=== PATIENT | female | born 1955 | race Caucasian/White ===

== ENCOUNTER 2021-08-10 15:49 | Inpatient (IN) ==
[2021-08-10] MEDS ORDERED: Acetaminophen 325 MG TABLET PO PRN (21:47)
[2021-08-10] MEDS ORDERED: Ondansetron 4 MG/2 ML VIAL IVP PRN (21:47)
[2021-08-10] MEDS ORDERED: Melatonin 3 MG TABLET PO PRN (21:47)
[2021-08-10] MEDS ORDERED: Naloxone 0.4 MG/ML INJ IVP PRN (21:47)
[2021-08-10] MEDS ORDERED: Perflutren Lipid Microsphere 1.3 ML in 0.9 % Sodium Chloride 8.7 ML IVP PRN (22:05)
[2021-08-11 02:17] LABS: Adenovirus Not Detected (Not Detect); Bordetella Pertussis Not Detected (Not Detect); Chlamydophila pneumoniae Not Detected (Not Detect); Coronavirus 229E Not Detected (Not Detect); Coronavirus HKU1 Not Detected (Not Detect); Coronavirus NL63 Not Detected (Not Detect); Coronavirus OC43 Not Detected (Not Detect); Human Metapneumovirus Not Detected (Not Detect); Human Rhinovirus/Enterovirus Not Detected (Not Detect); Influenza A Subtype 2009 H1 Not Detected (Not Detect); Influenza B Not Detected (Not Detect); Mycoplasma pneumoniae Not Detected (Not Detect); Parainfluenza Virus 1 Not Detected (Not Detect); Parainfluenza Virus 2 Not Detected (Not Detect); Parainfluenza Virus 3 Not Detected (Not Detect); Parainfluenza Virus 4 Not Detected (Not Detect); Respiratory Syncytial Virus Not Detected (Not Detect); SARS-CoV-2 Not Detected (Not Detect)
[2021-08-11 04:11] LABS: Basophils % 0.3 %; Hematocrit 40.2 % (35.3-44.9); Hemoglobin 12.8 g/dL (11.5-15.4); Lymphocytes % 7.6 %; Mean Corpuscular HGB Conc 31.8 g/dL (31.6-35.5); Mean Corpuscular Hemoglobin 31.7 pg (28.0-33.3); Mean Corpuscular Volume 99.5 fL (83.0-100.0); Mean Platelet Volume 9.8 fL (9.4-12.4); Monocytes # 0.8 K/mcL (0.0-1.3); Monocytes % 5.8 %; Neutrophils # 11.5 K/mcL (1.6-8.9); Nucleated Red Blood Cells 0.1 /100 WBC (0); Platelet Count 202 K/mcL (140-400); Red Blood Count 4.04 M/mcL (3.82-4.97); Red Cell Distribution Width 17.3 % (11.5-14.5); Segmented Neutrophils % 85.3 %; White Blood Count 13.5 K/mcL (4.3-11.1)
[2021-08-11 04:17] LABS: BUN/Creatinine Ratio 24 (6-26); Blood Urea Nitrogen 12 mg/dL (8-23); Calcium 9.1 mg/dL (8.6-10.3); Carbon Dioxide 32 mEq/L (23-29); Chloride 96 mEq/L (98-107); Glucose 143 mg/dL (70-105); Magnesium 1.9 mg/dL (1.6-2.6); Osmolality,Calculated 282 (280-300); Potassium 3.4 mEq/L (3.5-5.1); Sodium 135 mEq/L (136-145); eGFR For African Americans > 60 (> 60); eGFR For Non-African Americans > 60 (> 60)
[2021-08-11] MEDS ORDERED: *HR* Enoxaparin 40 MG/0.4 ML SYRINGE SQ SCH (06:00)
[2021-08-11 07:27] VITALS: BP 107/71; PULSE 100; TEMP 98.2; O2SAT 94
[2021-08-11] MEDS ORDERED: Magic Mouthwash 10 ML UD Cup PO PRN (08:11)
[2021-08-11 08:40] LABS: Troponin I < 0.03 ng/mL (< 0.04)
[2021-08-11] MEDS ORDERED: levoFLOXacin 750 MG/150 ML 750 MG/150 ML BAG IVPB SCH (09:00)
[2021-08-11] MEDS ORDERED: Metoprolol XL (24 HR) Succ 50 MG TAB.ER.24H PO SCH (09:00)
[2021-08-11] MEDS ORDERED: amLODIPine 5 MG TABLET PO SCH (09:00)
[2021-08-11 10:31] LABS: Folate 12.2 ng/mL (3.0-16.0)
[2021-08-11 10:53] LABS: Vitamin B12 > 1500 pg/mL (250-1100)
[2021-08-11] MEDS ORDERED: OLANZapine 5 MG TAB.RAPDIS PO SCH (21:00)
== END 2021-08-11 13:31 | disposition home or self-care (01) | DRG 314 ==
LOC: 2ANU → OBSVTOIN 21:14
PROVIDERS: ADMIT General Practice; ATTEND General Practice

== ENCOUNTER 2021-10-08 19:10 | Inpatient (IN) ==
[2021-10-08 20:18] LABS: Basophils # 0.1 K/mcL (0.0-0.2); Basophils % 0.4 %; Eosinophils % 0.3 %; Hematocrit 38.2 % (35.3-44.9); Hemoglobin 11.8 g/dL (11.5-15.4); Immature Granulocytes % 0.6 % (0-4); Lymphocytes % 8.2 %; Mean Corpuscular HGB Conc 30.9 g/dL (31.6-35.5); Mean Corpuscular Hemoglobin 31.5 pg (28.0-33.3); Mean Corpuscular Volume 101.9 fL (83.0-100.0); Mean Platelet Volume 9.7 fL (9.4-12.4); Monocytes # 1.2 K/mcL (0.0-1.3); Neutrophils # 9.6 K/mcL (1.6-8.9); Platelet Count 298 K/mcL (140-400); Red Blood Count 3.75 M/mcL (3.82-4.97); Red Cell Distribution Width 17.1 % (11.5-14.5); Segmented Neutrophils % 80.5 %; White Blood Count 11.9 K/mcL (4.3-11.1)
[2021-10-08 20:39] LABS: Alanine Aminotransferase 13 Units/L (7-52); Albumin 3.3 g/dL (3.5-5.7); Albumin/Globulin Ratio 1.2 (1.1-2.2); Alkaline Phosphatase 108 Units/L (34-104); Aspartate Amino Transferase 11 Units/L (13-39); BUN/Creatinine Ratio 15 (6-26); Bilirubin,Total 0.3 mg/dL (0.3-1.0); Blood Urea Nitrogen 6 mg/dL (8-23); Calcium 9.1 mg/dL (8.6-10.3); Carbon Dioxide 35 mEq/L (23-29); Chloride 94 mEq/L (98-107); Globulin 2.7 g/dL (2.4-3.5); Glucose 225 mg/dL (70-105); Osmolality,Calculated 285 (280-300); Potassium 3.1 mEq/L (3.5-5.1); Sodium 135 mEq/L (136-145); eGFR For African Americans > 60 (> 60); eGFR For Non-African Americans > 60 (> 60)
[2021-10-08 20:56] LABS: Influenza A PCR Negative (Negative); Influenza B PCR Negative (Negative); Resp. Syncytial Virus PCR Negative (Negative)
[2021-10-08 20:57] LABS: SARS-CoV-2 by PCR (In House) Negative (Negative)
[2021-10-08 21:09] LABS: Magnesium 1.8 mg/dL (1.6-2.6)
[2021-10-08] MEDS ORDERED: Azithromycin 500 MG in 0.9 % Sodium Chloride 250 ML IVPB ONE (21:11)
[2021-10-08] MEDS ORDERED: Cefepime HCl 2,000 MG in 0.9 % Sodium Chloride Mini Bag 100 ML IVPB ONE (21:18)
[2021-10-08] MEDS ORDERED: *HR* HYDROcodone/Acet 7.5/325 mg TABLET PO ONE (22:50)
[2021-10-09] MEDS ORDERED: Naloxone 0.4 MG/ML INJ IVP PRN (00:43)
[2021-10-09] MEDS ORDERED: MOM Conc 10 ML UD.LIQ PO PRN (01:16)
[2021-10-09] MEDS ORDERED: Ondansetron 4 MG/2 ML VIAL IVP PRN ×2 (01:16→11:27)
[2021-10-09] MEDS ORDERED: Melatonin 3 MG TABLET PO PRN (01:16)
[2021-10-09] MEDS ORDERED: Acetaminophen 325 MG TABLET PO PRN (01:16)
[2021-10-09] MEDS: Ipratropium/Albuterol Neb 3 ML IH SCH ×5 (03:40→21:02)
[2021-10-09 04:01] LABS: Basophils % 0.4 %; Eosinophils # 0.1 K/mcL (0.0-0.6); Eosinophils % 0.6 %; Hematocrit 37.1 % (35.3-44.9); Hemoglobin 11.6 g/dL (11.5-15.4); Immature Granulocytes % 0.4 % (0-4); Lymphocytes # 0.7 K/mcL (0.6-4.6); Lymphocytes % 7.4 %; Mean Corpuscular HGB Conc 31.3 g/dL (31.6-35.5); Mean Corpuscular Volume 102.5 fL (83.0-100.0); Mean Platelet Volume 9.6 fL (9.4-12.4); Monocytes # 0.9 K/mcL (0.0-1.3); Monocytes % 9.3 %; Neutrophils # 8.2 K/mcL (1.6-8.9); Platelet Count 295 K/mcL (140-400); Red Blood Count 3.62 M/mcL (3.82-4.97); Red Cell Distribution Width 17.1 % (11.5-14.5); Segmented Neutrophils % 81.9 %; White Blood Count 10.1 K/mcL (4.3-11.1)
[2021-10-09 04:23] LABS: BUN/Creatinine Ratio 15 (6-26); Blood Urea Nitrogen 5 mg/dL (8-23); Calcium 8.7 mg/dL (8.6-10.3); Carbon Dioxide 35 mEq/L (23-29); Chloride 99 mEq/L (98-107); Glucose 178 mg/dL (70-105); Osmolality,Calculated 288 (280-300); Potassium 4.1 mEq/L (3.5-5.1); Sodium 138 mEq/L (136-145); eGFR For African Americans > 60 (> 60); eGFR For Non-African Americans > 60 (> 60)
[2021-10-09 05:08] LABS: INR 1.1; Prothrombin Time 12.6 Seconds (9.4-12.1)
[2021-10-09 05:11] LABS: Activated Partial Thrombo Time 30.4 Seconds (26.0-36.0)
[2021-10-09] MEDS: Metoprolol XL (24 HR) Succ 25 MG TAB.ER.24H PO SCH (08:05)
[2021-10-09] MEDS ORDERED: NiCARdipine 2.5 MG/10 ML Syringe IVPB ONE (10:57)
[2021-10-09] MEDS ORDERED: *HR* Propofol 200 MG/20 ML VIAL IVP ONE (11:02)
[2021-10-09] MEDS ORDERED: *HR* FentaNYL (PF) 250 MCG/5 ML VIAL ONE (11:02)
[2021-10-09] MEDS ORDERED: Ondansetron 4 MG/2 ML VIAL ONE (11:03)
[2021-10-09] MEDS ORDERED: Lidocaine 2% Syringe 100 MG/5 ML ONE (11:03)
[2021-10-09] MEDS ORDERED: *HR* Rocuronium Bromide 50 MG/5 ML VIAL ONE (11:03)
[2021-10-09] MEDS ORDERED: *HR* Midazolam HCl 2 MG/2 ML VIAL ONE (11:10)
[2021-10-09] MEDS ORDERED: ceFAZolin 2,000 MG in 0.9 % Sodium Chloride 100 ML IVPB ONE (11:15)
[2021-10-09] MEDS ORDERED: *HR* Metoprolol 5 MG/5 ML VIAL IVP PRN (11:27)
[2021-10-09] MEDS ORDERED: Albuterol 2.5 MG/3 ML NEBULIZER IH PRN (11:27)
[2021-10-09] MEDS ORDERED: *HR* Metoprolol 5 MG/5 ML VIAL IVP ONE (12:11)
[2021-10-09] MEDS: *HR* FentaNYL (PF) 100 MCG/2 ML VIAL IVP PRN ×2 (13:00→13:07)
[2021-10-09] MEDS ORDERED: Ringers Solution, Lactated 1,000 ML ONE (13:01)
[2021-10-09] MEDS ORDERED: *HR* OxyCODONE/APAP 5/325 TABLET PO PRN (13:06)
[2021-10-09] MEDS ORDERED: *HR* HYDROcodone/Acet 7.5/325 mg TABLET PO ONE (14:05)
[2021-10-09] MEDS: ceFAZolin 2,000 MG in 0.9 % Sodium Chloride 100 ML IVPB SCH (17:23)
[2021-10-09] MEDS: *HR* HYDROcodone/Acet 7.5/325 mg TABLET PO PRN ×2 (17:59→23:14)
[2021-10-10] MEDS: ceFAZolin 2,000 MG in 0.9 % Sodium Chloride 100 ML IVPB SCH (00:29)
[2021-10-10] MEDS: Ipratropium/Albuterol Neb 3 ML IH SCH ×8 (00:39→23:18)
[2021-10-10] MEDS: *HR* HYDROcodone/Acet 7.5/325 mg TABLET PO PRN ×3 (03:20→20:40)
[2021-10-10 06:41] LABS: Basophils % 0.1 %; Hematocrit 39.5 % (35.3-44.9); Hemoglobin 12.3 g/dL (11.5-15.4); Immature Granulocytes % 0.4 % (0-4); Lymphocytes # 0.9 K/mcL (0.6-4.6); Lymphocytes % 6.8 %; Mean Corpuscular HGB Conc 31.1 g/dL (31.6-35.5); Mean Corpuscular Hemoglobin 31.5 pg (28.0-33.3); Mean Corpuscular Volume 101.3 fL (83.0-100.0); Mean Platelet Volume 9.2 fL (9.4-12.4); Monocytes # 1.4 K/mcL (0.0-1.3); Monocytes % 10.1 %; Neutrophils # 11.4 K/mcL (1.6-8.9); Platelet Count 283 K/mcL (140-400); Red Cell Distribution Width 16.8 % (11.5-14.5); Segmented Neutrophils % 82.6 %; White Blood Count 13.8 K/mcL (4.3-11.1)
[2021-10-10 07:00] LABS: BUN/Creatinine Ratio 20 (6-26); Blood Urea Nitrogen 7 mg/dL (8-23); Calcium 9.1 mg/dL (8.6-10.3); Carbon Dioxide 36 mEq/L (23-29); Chloride 95 mEq/L (98-107); Glucose 152 mg/dL (70-105); Osmolality,Calculated 285 (280-300); Sodium 137 mEq/L (136-145); eGFR For African Americans > 60 (> 60); eGFR For Non-African Americans > 60 (> 60)
[2021-10-10] MEDS: Metoprolol XL (24 HR) Succ 25 MG TAB.ER.24H PO SCH (07:50)
[2021-10-10] MEDS ORDERED: Tiotropium 10 INH DOSE IH PRN (07:54)
[2021-10-10] MEDS: Metoprolol XL (24 HR) Succ 50 MG TAB.ER.24H PO SCH (09:37)
[2021-10-10] MEDS ORDERED: Metoprolol XL (24 HR) Succ 25 MG TAB.ER.24H PO ONE (09:40)
[2021-10-10] MEDS: Furosemide 20 MG TABLET PO SCH ×2 (09:57→20:40)
[2021-10-10] MEDS: amLODIPine 5 MG TABLET PO SCH ×2 (09:57→20:40)
[2021-10-10] MEDS: CeFAZolin 2,000 MG/120 ML BAG IVPB SCH ×2 (10:02→17:04)
[2021-10-10] MEDS: *HR* Metoprolol 5 MG/5 ML VIAL IVP PRN (13:28)
[2021-10-10] MEDS ORDERED: Metoprolol XL (24 HR) Succ 50 MG TAB.ER.24H PO ONE (18:51)
[2021-10-11] MEDS ORDERED: *HR* Metoprolol 5 MG/5 ML VIAL IVP ONE (01:14)
[2021-10-11] MEDS: CeFAZolin 2,000 MG/120 ML BAG IVPB SCH ×3 (01:23→17:20)
[2021-10-11 01:53] LABS: Basophils % 0.3 %; Eosinophils % 0.2 %; Hematocrit 41.3 % (35.3-44.9); Hemoglobin 12.8 g/dL (11.5-15.4); Immature Granulocytes % 0.5 % (0-4); Lymphocytes # 0.9 K/mcL (0.6-4.6); Lymphocytes % 8.2 %; Mean Corpuscular Hemoglobin 31.4 pg (28.0-33.3); Mean Corpuscular Volume 101.2 fL (83.0-100.0); Mean Platelet Volume 9.6 fL (9.4-12.4); Monocytes # 1.3 K/mcL (0.0-1.3); Monocytes % 11.4 %; Neutrophils # 8.7 K/mcL (1.6-8.9); Platelet Count 284 K/mcL (140-400); Red Blood Count 4.08 M/mcL (3.82-4.97); Red Cell Distribution Width 16.9 % (11.5-14.5); Segmented Neutrophils % 79.4 %; White Blood Count 10.9 K/mcL (4.3-11.1)
[2021-10-11 02:02] LABS: BUN/Creatinine Ratio 17 (6-26); Blood Urea Nitrogen 7 mg/dL (8-23); Calcium 8.8 mg/dL (8.6-10.3); Carbon Dioxide 37 mEq/L (23-29); Chloride 94 mEq/L (98-107); Glucose 199 mg/dL (70-105); Osmolality,Calculated 288 (280-300); Potassium 3.4 mEq/L (3.5-5.1); Sodium 137 mEq/L (136-145); eGFR For African Americans > 60 (> 60); eGFR For Non-African Americans > 60 (> 60)
[2021-10-11] MEDS: Ipratropium/Albuterol Neb 3 ML IH SCH ×5 (03:45→20:15)
[2021-10-11] MEDS: Furosemide 20 MG TABLET PO SCH ×2 (07:18→19:44)
[2021-10-11] MEDS: amLODIPine 5 MG TABLET PO SCH ×2 (07:18→19:44)
[2021-10-11] MEDS: *HR* HYDROcodone/Acet 7.5/325 mg TABLET PO PRN ×2 (07:19→15:28)
[2021-10-11] MEDS: Metoprolol XL (24 HR) Succ 50 MG TAB.ER.24H PO SCH (07:19)
[2021-10-11] MEDS ORDERED: Metoprolol XL (24 HR) Succ 50 MG TAB.ER.24H PO ONE (07:37)
[2021-10-11] MEDS ORDERED: *HR* Metoprolol 5 MG/5 ML VIAL IVP PRN (18:18)
[2021-10-12] MEDS: *HR* HYDROcodone/Acet 7.5/325 mg TABLET PO PRN ×2 (00:38→09:07)
[2021-10-12] MEDS: Ipratropium/Albuterol Neb 3 ML IH SCH ×4 (00:47→11:10)
[2021-10-12] MEDS: CeFAZolin 2,000 MG/120 ML BAG IVPB SCH ×2 (01:30→09:07)
[2021-10-12] MEDS: *HR* Metoprolol 5 MG/5 ML VIAL IVP PRN (02:37)
[2021-10-12 04:15] LABS: Basophils % 0.5 %; Eosinophils # 0.1 K/mcL (0.0-0.6); Eosinophils % 1.1 %; Hematocrit 41.6 % (35.3-44.9); Hemoglobin 12.9 g/dL (11.5-15.4); Immature Granulocytes % 0.6 % (0-4); Mean Corpuscular Hemoglobin 31.2 pg (28.0-33.3); Mean Corpuscular Volume 100.5 fL (83.0-100.0); Mean Platelet Volume 9.8 fL (9.4-12.4); Neutrophils # 6.1 K/mcL (1.6-8.9); Platelet Count 269 K/mcL (140-400); Red Blood Count 4.14 M/mcL (3.82-4.97); Red Cell Distribution Width 16.4 % (11.5-14.5); Segmented Neutrophils % 73.8 %; White Blood Count 8.2 K/mcL (4.3-11.1)
[2021-10-12 04:31] LABS: BUN/Creatinine Ratio 23 (6-26); Blood Urea Nitrogen 9 mg/dL (8-23); Calcium 8.8 mg/dL (8.6-10.3); Carbon Dioxide 36 mEq/L (23-29); Chloride 97 mEq/L (98-107); Glucose 234 mg/dL (70-105); Osmolality,Calculated 290 (280-300); Potassium 3.8 mEq/L (3.5-5.1); Sodium 137 mEq/L (136-145); eGFR For African Americans > 60 (> 60); eGFR For Non-African Americans > 60 (> 60)
[2021-10-12] MEDS: Furosemide 20 MG TABLET PO SCH (08:27)
[2021-10-12] MEDS: amLODIPine 5 MG TABLET PO SCH (08:27)
[2021-10-12] MEDS ORDERED: Metoprolol XL (24 HR) Succ 50 MG TAB.ER.24H PO SCH (09:00)
[2021-10-12] MEDS ORDERED: DilTIAZem CD (24hr) 180 MG CAP.ER.24H PO SCH (09:00)
[2021-10-12] MEDS ORDERED: Apixaban 5 MG TABLET PO SCH (09:45)
[2021-10-12 11:48] VITALS: BP 134/82; PULSE 89; TEMP 98.2; O2SAT 94
== END 2021-10-12 14:35 | disposition home or self-care (01) | DRG 270 ==
LOC: EMEROOARM 19:10 → SUATTDRO 10-09 00:35 → 3NENU 10-09 00:35 → 2NNU 10-09 14:12
PROVIDERS: ADMIT Internal Medicine; ATTEND Internal Medicine

== ENCOUNTER 2022-04-09 11:35 | Inpatient (IN) ==
[2022-04-09] MEDS ORDERED: Perflutren Lipid Microsphere 1.3 ML in 0.9 % Sodium Chloride 8.7 ML IVP PRN (13:19)
[2022-04-09 13:29] LABS: Basophils % 0.2 %; Eosinophils % 0.1 %; Hematocrit 42.8 % (35.3-44.9); Hemoglobin 13.7 g/dL (11.5-15.4); Immature Granulocytes % 0.4 % (0-4); Lymphocytes # 0.7 K/mcL (0.6-4.6); Mean Corpuscular Hemoglobin 32.1 pg (28.0-33.3); Mean Corpuscular Volume 100.2 fL (83.0-100.0); Mean Platelet Volume 9.5 fL (9.4-12.4); Monocytes # 0.3 K/mcL (0.0-1.3); Monocytes % 3.3 %; Neutrophils # 7.9 K/mcL (1.6-8.9); Platelet Count 218 K/mcL (140-400); Red Blood Count 4.27 M/mcL (3.82-4.97); Red Cell Distribution Width 13.5 % (11.5-14.5)
[2022-04-09 13:36] LABS: INR 1.3; Prothrombin Time 14.1 Seconds (9.4-12.1)
[2022-04-09 13:38] LABS: Activated Partial Thrombo Time 33.3 Seconds (26.0-36.0)
[2022-04-09 13:50] LABS: BUN/Creatinine Ratio 21 (6-26); Blood Urea Nitrogen 11 mg/dL (8-23); Calcium 9.4 mg/dL (8.6-10.3); Carbon Dioxide 34 mEq/L (23-29); Chloride 96 mEq/L (98-107); Glucose 243 mg/dL (70-105); Osmolality,Calculated 285 (280-300); Potassium 4.8 mEq/L (3.5-5.1); Sodium 134 mEq/L (136-145); Troponin I < 0.03 ng/mL (< 0.04); eGFR For African Americans > 60 (> 60); eGFR For Non-African Americans > 60 (> 60)
[2022-04-09] MEDS ORDERED: Naloxone 0.4 MG/ML INJ IVP PRN (15:17)
[2022-04-09] MEDS ORDERED: Ondansetron 4 MG/2 ML VIAL IVP PRN (15:17)
[2022-04-09] MEDS ORDERED: Levalbuterol Neb 0.63 MG/3 ML IH PRN (15:21)
[2022-04-09] MEDS ORDERED: Acetaminophen 325 MG TABLET PO PRN (15:23)
[2022-04-09] MEDS: predniSONE 20 MG TABLET PO SCH (18:05)
[2022-04-09] MEDS: *HR* HYDROcodone/Acet 7.5/325 mg TABLET PO PRN ×2 (18:05→22:39)
[2022-04-09] MEDS: amLODIPine 5 MG TABLET PO SCH (20:09)
[2022-04-09] MEDS: Carisoprodol 350 MG TABLET PO SCH (20:10)
[2022-04-09] MEDS ORDERED: Melatonin 3 MG TABLET PO SCH (21:00)
[2022-04-09 22:01] LABS: Chol/HDL Ratio 2.6 (0-4.9)
[2022-04-09] MEDS: Chlorhexidine Rinse 15 ML MOUTHWASH MM SCH (22:39)
[2022-04-10 02:54] LABS: Basophils % 0.2 %; Hematocrit 44.2 % (35.3-44.9); Hemoglobin 14.3 g/dL (11.5-15.4); Immature Granulocytes % 0.5 % (0-4); Lymphocytes # 0.8 K/mcL (0.6-4.6); Lymphocytes % 10.4 %; Mean Corpuscular HGB Conc 32.4 g/dL (31.6-35.5); Mean Corpuscular Hemoglobin 32.8 pg (28.0-33.3); Mean Corpuscular Volume 101.4 fL (83.0-100.0); Mean Platelet Volume 9.6 fL (9.4-12.4); Monocytes # 0.4 K/mcL (0.0-1.3); Monocytes % 4.3 %; Neutrophils # 6.8 K/mcL (1.6-8.9); Platelet Count 196 K/mcL (140-400); Red Blood Count 4.36 M/mcL (3.82-4.97); Red Cell Distribution Width 13.5 % (11.5-14.5); Segmented Neutrophils % 84.6 %; White Blood Count 8.1 K/mcL (4.3-11.1)
[2022-04-10 02:59] LABS: Prothrombin Time 11.5 Seconds (9.4-12.1)
[2022-04-10 03:13] LABS: BUN/Creatinine Ratio 24 (6-26); Blood Urea Nitrogen 11 mg/dL (8-23); Calcium 9.4 mg/dL (8.6-10.3); Carbon Dioxide 33 mEq/L (23-29); Chloride 98 mEq/L (98-107); Glucose 141 mg/dL (70-105); Osmolality,Calculated 286 (280-300); Potassium 4.7 mEq/L (3.5-5.1); Sodium 137 mEq/L (136-145); eGFR For African Americans > 60 (> 60); eGFR For Non-African Americans > 60 (> 60)
[2022-04-10] MEDS: *HR* HYDROcodone/Acet 7.5/325 mg TABLET PO PRN ×3 (04:44→20:15)
[2022-04-10] MEDS ORDERED: Aspirin 81 MG TAB.CHEW PO ONE (06:00)
[2022-04-10] MEDS: Carisoprodol 350 MG TABLET PO SCH ×2 (07:54→21:24)
[2022-04-10] MEDS: amLODIPine 5 MG TABLET PO SCH (07:54)
[2022-04-10] MEDS: predniSONE 20 MG TABLET PO SCH (07:54)
[2022-04-10] MEDS: Chlorhexidine Rinse 15 ML MOUTHWASH MM SCH (07:55)
[2022-04-10] MEDS ORDERED: Clindamycin 900 MG/50 ML 900 MG/50 ML IV.SOLN IVPB ONE (10:00)
[2022-04-10] MEDS ORDERED: *HR* FentaNYL (PF) 250 MCG/5 ML VIAL ONE (12:38)
[2022-04-10] MEDS ORDERED: Lidocaine 2% Syringe 100 MG/5 ML ONE (12:39)
[2022-04-10] MEDS ORDERED: *HR* Etomidate 20 MG/10 ML AMPUL IVP ONE (12:39)
[2022-04-10] MEDS ORDERED: *HR* Rocuronium Bromide 50 MG/5 ML VIAL ONE (12:39)
[2022-04-10] MEDS ORDERED: Albuterol 2.5 MG/3 ML NEBULIZER IH PRN ×2 (12:54→17:52)
[2022-04-10] MEDS ORDERED: Ondansetron 4 MG/2 ML VIAL IVP PRN ×2 (12:54→17:52)
[2022-04-10] MEDS ORDERED: *HR* Metoprolol 5 MG/5 ML VIAL IVP PRN (12:54)
[2022-04-10] MEDS ORDERED: *HR* OxyCODONE Immed Rel 5 MG TABLET PO PRN (12:54)
[2022-04-10] MEDS ORDERED: *HR* Midazolam HCl 2 MG/2 ML VIAL ONE (13:10)
[2022-04-10] MEDS ORDERED: Bupivacaine 0.5%-Epi 1:200,000 50 ML VIAL ONE (13:40)
[2022-04-10] MEDS ORDERED: ceFAZolin 2,000 MG in Water for inj. (sterile) 20 ML IVP ONE (13:48)
[2022-04-10] MEDS ORDERED: Naloxone 0.4 MG/ML INJ IVP PRN ×3 (14:18→17:52)
[2022-04-10] MEDS ORDERED: *HR* HYDROcodone/Acet 5/325 mg TABLET PO PRN (14:18)
[2022-04-10] MEDS ORDERED: Sugammadex Sodium 200 MG/2 ML VIAL IV ONE (14:21)
[2022-04-10] MEDS ORDERED: Ondansetron 4 MG/2 ML VIAL ONE (14:22)
[2022-04-10] MEDS ORDERED: *HR* Propofol 200 MG/20 ML VIAL IVP ONE (15:11)
[2022-04-10] MEDS ORDERED: Ipratropium/Albuterol Neb 3 ML ONE (15:44)
[2022-04-10] MEDS ORDERED: Clindamycin 900 MG/50 ML 900 MG/50 ML IV.SOLN IVPB SCH (16:00)
[2022-04-10] MEDS: *HR* FentaNYL (PF) 100 MCG/2 ML VIAL IVP PRN ×3 (16:14→16:38)
[2022-04-10] MEDS ORDERED: *HR* HYDROmorphone (PF) 1 MG/ML SYRINGE ONE (16:40)
[2022-04-10] MEDS ORDERED: *HR* HYDROmorphone PF 0.5 MG/0.5 ML SYRINGE IVP PRN ×2 (16:44→17:00)
[2022-04-10] MEDS ORDERED: *HR* HYDROmorphone (PF) 1 MG/ML SYRINGE IVP ONE (16:46)
[2022-04-10] MEDS ORDERED: Acetaminophen 325 MG TABLET PO PRN (17:52)
[2022-04-10] MEDS ORDERED: Furosemide 20 MG TABLET PO PRN (17:52)
[2022-04-10] MEDS ORDERED: Levalbuterol Neb 0.63 MG/3 ML IH PRN (17:52)
[2022-04-10] MEDS: Melatonin 3 MG TABLET PO SCH (20:16)
[2022-04-10] MEDS: Gabapentin 300 MG CAPSULE PO SCH (20:16)
[2022-04-10 20:41] LABS: Basophils % 0.2 %; Hematocrit 42.7 % (35.3-44.9); Hemoglobin 13.9 g/dL (11.5-15.4); Immature Granulocytes % 0.3 % (0-4); Lymphocytes # 0.7 K/mcL (0.6-4.6); Lymphocytes % 5.7 %; Mean Corpuscular HGB Conc 32.6 g/dL (31.6-35.5); Mean Corpuscular Hemoglobin 32.8 pg (28.0-33.3); Mean Corpuscular Volume 100.7 fL (83.0-100.0); Mean Platelet Volume 9.4 fL (9.4-12.4); Monocytes # 0.9 K/mcL (0.0-1.3); Monocytes % 7.8 %; Neutrophils # 10.2 K/mcL (1.6-8.9); Platelet Count 195 K/mcL (140-400); Red Blood Count 4.24 M/mcL (3.82-4.97); Red Cell Distribution Width 13.4 % (11.5-14.5); White Blood Count 11.9 K/mcL (4.3-11.1)
[2022-04-10] MEDS ORDERED: amLODIPine 5 MG TABLET PO SCH (21:00)
[2022-04-11] MEDS: CeFAZolin 2,000 MG/120 ML BAG IVPB SCH ×4 (00:18→23:13)
[2022-04-11] MEDS: *HR* HYDROcodone/Acet 7.5/325 mg TABLET PO PRN ×2 (00:25→03:20)
[2022-04-11 04:22] LABS: ABG Base Excess 8 mEq/L (-2 to 3); ABG HCO3 36 mEq/L (21-27); ABG Oxygen Saturation 96 % (95-98); ABG PCO2 66 mmHg (35-45); ABG PH 7.35 pH Units (7.32-7.45); ABG PO2 93 mmHg (85-104); ABG TCO2 38 mEq/L (20-26)
[2022-04-11 04:34] LABS: Basophils % 0.2 %; Eosinophils % 0.1 %; Hematocrit 45.4 % (35.3-44.9); Hemoglobin 14.6 g/dL (11.5-15.4); Immature Granulocytes % 0.5 % (0-4); Lymphocytes # 0.9 K/mcL (0.6-4.6); Lymphocytes % 10.8 %; Mean Corpuscular HGB Conc 32.2 g/dL (31.6-35.5); Mean Corpuscular Hemoglobin 32.6 pg (28.0-33.3); Mean Corpuscular Volume 101.3 fL (83.0-100.0); Mean Platelet Volume 9.8 fL (9.4-12.4); Monocytes # 0.7 K/mcL (0.0-1.3); Monocytes % 8.5 %; Neutrophils # 6.9 K/mcL (1.6-8.9); Platelet Count 208 K/mcL (140-400); Red Blood Count 4.48 M/mcL (3.82-4.97); Red Cell Distribution Width 13.5 % (11.5-14.5); Segmented Neutrophils % 79.9 %; White Blood Count 8.6 K/mcL (4.3-11.1)
[2022-04-11 04:53] LABS: BUN/Creatinine Ratio 30 (6-26); Blood Urea Nitrogen 14 mg/dL (8-23); Calcium 9.5 mg/dL (8.6-10.3); Carbon Dioxide 35 mEq/L (23-29); Chloride 94 mEq/L (98-107); Glucose 134 mg/dL (70-105); Osmolality,Calculated 282 (280-300); Potassium 4.1 mEq/L (3.5-5.1); Sodium 135 mEq/L (136-145); eGFR For African Americans > 60 (> 60); eGFR For Non-African Americans > 60 (> 60)
[2022-04-11] MEDS ORDERED: *HR* OxyCODONE Immed Rel 5 MG TABLET PO PRN (06:44)
[2022-04-11] MEDS: Gabapentin 300 MG CAPSULE PO SCH ×3 (07:47→20:08)
[2022-04-11] MEDS: predniSONE 20 MG TABLET PO SCH ×2 (07:47→17:10)
[2022-04-11] MEDS: Carisoprodol 350 MG TABLET PO SCH ×3 (07:47→20:07)
[2022-04-11] MEDS: *HR* OxyCODONE/APAP 10/325 TABLET PO PRN ×3 (11:18→20:08)
[2022-04-11] MEDS: Melatonin 3 MG TABLET PO SCH (20:08)
[2022-04-12] MEDS ORDERED: *HR* Metoprolol 5 MG/5 ML VIAL IVP ONE ×4 (02:13→04:31)
[2022-04-12] MEDS: *HR* OxyCODONE/APAP 10/325 TABLET PO PRN ×5 (02:13→23:10)
[2022-04-12 03:30] LABS: Basophils % 0.2 %; Eosinophils % 0.1 %; Hematocrit 43.3 % (35.3-44.9); Hemoglobin 14.4 g/dL (11.5-15.4); Immature Granulocytes % 0.3 % (0-4); Lymphocytes # 0.9 K/mcL (0.6-4.6); Lymphocytes % 10.1 %; Mean Corpuscular HGB Conc 33.3 g/dL (31.6-35.5); Mean Corpuscular Hemoglobin 32.8 pg (28.0-33.3); Mean Corpuscular Volume 98.6 fL (83.0-100.0); Mean Platelet Volume 10.4 fL (9.4-12.4); Monocytes # 0.8 K/mcL (0.0-1.3); Monocytes % 8.2 %; Neutrophils # 7.6 K/mcL (1.6-8.9); Platelet Count 180 K/mcL (140-400); Red Blood Count 4.39 M/mcL (3.82-4.97); Red Cell Distribution Width 13.3 % (11.5-14.5); Segmented Neutrophils % 81.1 %; White Blood Count 9.3 K/mcL (4.3-11.1)
[2022-04-12 03:46] LABS: BUN/Creatinine Ratio 28 (6-26); Blood Urea Nitrogen 16 mg/dL (8-23); Calcium 9.2 mg/dL (8.6-10.3); Carbon Dioxide 34 mEq/L (23-29); Chloride 95 mEq/L (98-107); Glucose 149 mg/dL (70-105); Osmolality,Calculated 286 (280-300); Phosphorous 3.6 mg/dL (2.7-4.5); Potassium 4.7 mEq/L (3.5-5.1); Sodium 136 mEq/L (136-145); eGFR For African Americans > 60 (> 60); eGFR For Non-African Americans > 60 (> 60)
[2022-04-12] MEDS: CeFAZolin 2,000 MG/120 ML BAG IVPB SCH ×2 (06:10→15:45)
[2022-04-12] MEDS: Carisoprodol 350 MG TABLET PO SCH ×3 (07:54→19:38)
[2022-04-12] MEDS: Gabapentin 300 MG CAPSULE PO SCH ×3 (07:54→19:38)
[2022-04-12] MEDS: Melatonin 3 MG TABLET PO SCH (19:38)
[2022-04-12] MEDS ORDERED: Bisacodyl 10 MG RECTAL SUPPOSITORY RC PRN (20:23)
[2022-04-13 00:52] LABS: Basophils % 0.4 %; Eosinophils # 0.2 K/mcL (0.0-0.6); Eosinophils % 1.6 %; Hematocrit 44.4 % (35.3-44.9); Hemoglobin 14.3 g/dL (11.5-15.4); Immature Granulocytes % 0.4 % (0-4); Lymphocytes # 0.9 K/mcL (0.6-4.6); Mean Corpuscular HGB Conc 32.2 g/dL (31.6-35.5); Mean Corpuscular Hemoglobin 32.2 pg (28.0-33.3); Mean Platelet Volume 9.5 fL (9.4-12.4); Monocytes # 0.9 K/mcL (0.0-1.3); Monocytes % 8.6 %; Neutrophils # 8.1 K/mcL (1.6-8.9); Platelet Count 181 K/mcL (140-400); Red Blood Count 4.44 M/mcL (3.82-4.97); Red Cell Distribution Width 13.5 % (11.5-14.5); White Blood Count 10.1 K/mcL (4.3-11.1)
[2022-04-13 02:30] LABS: BUN/Creatinine Ratio 31 (6-26); Blood Urea Nitrogen 16 mg/dL (8-23); Carbon Dioxide 32 mEq/L (23-29); Chloride 96 mEq/L (98-107); Glucose 144 mg/dL (70-105); Magnesium 1.9 mg/dL (1.6-2.6); Osmolality,Calculated 286 (280-300); Sodium 136 mEq/L (136-145); eGFR For African Americans > 60 (> 60); eGFR For Non-African Americans > 60 (> 60)
[2022-04-13] MEDS: *HR* OxyCODONE/APAP 10/325 TABLET PO PRN ×4 (03:50→21:39)
[2022-04-13] MEDS ORDERED: *HR* Metoprolol 5 MG/5 ML VIAL IVP ONE ×3 (04:03→11:58)
[2022-04-13] MEDS: *HR* Metoprolol 5 MG/5 ML VIAL IVP ONE ×2 (04:07→04:12)
[2022-04-13] MEDS: Carisoprodol 350 MG TABLET PO SCH ×3 (07:45→20:12)
[2022-04-13] MEDS: Gabapentin 300 MG CAPSULE PO SCH ×3 (07:45→20:12)
[2022-04-13] MEDS ORDERED: Acetaminophen IV 1,000 MG/100 ML BAG IVPB ONE ×2 (10:06→10:20)
[2022-04-13] MEDS ORDERED: Famotidine 20 MG/2 ML VIAL IVP ONE (10:06)
[2022-04-13] MEDS ORDERED: Famotidine 20 MG/2 ML VIAL ONE (10:21)
[2022-04-13] MEDS ORDERED: ceFAZolin 2,000 MG in Water for inj. (sterile) 20 ML IVP ONE (10:44)
[2022-04-13] MEDS ORDERED: Ondansetron 4 MG/2 ML VIAL IVP PRN ×3 (11:11→12:20)
[2022-04-13] MEDS ORDERED: *HR* HYDROmorphone PF 0.5 MG/0.5 ML SYRINGE IVP PRN ×2 (11:11→12:20)
[2022-04-13] MEDS ORDERED: Ipratropium/Albuterol Neb 3 ML ONE (11:37)
[2022-04-13] MEDS ORDERED: *HR* Rocuronium Bromide 50 MG/5 ML VIAL ONE (11:58)
[2022-04-13] MEDS ORDERED: Lidocaine -MPF 2% 2 ML VIAL ONE (11:58)
[2022-04-13] MEDS ORDERED: *HR* Succinylcholine 200 MG/10 ML VIAL IVP ONE (11:58)
[2022-04-13] MEDS ORDERED: Ondansetron 4 MG/2 ML VIAL ONE (11:58)
[2022-04-13] MEDS ORDERED: Acetylcysteine 10% 2 ML INHSOL IH SCH (12:00)
[2022-04-13] MEDS ORDERED: Levalbuterol Neb 0.63 MG/3 ML IH SCH (12:00)
[2022-04-13] MEDS ORDERED: Piperacillin/Tazobactam 3.375 GM in 0.9 % Sodium Chloride Mini Bag 100 ML IVPB SCH (12:00)
[2022-04-13] MEDS ORDERED: Furosemide 20 MG TABLET PO PRN (12:20)
[2022-04-13] MEDS ORDERED: Bisacodyl 10 MG RECTAL SUPPOSITORY RC PRN (12:20)
[2022-04-13] MEDS ORDERED: Acetaminophen 325 MG TABLET PO PRN (12:20)
[2022-04-13] MEDS ORDERED: Naloxone 0.4 MG/ML INJ IVP PRN (12:20)
[2022-04-13] MEDS: Piperacillin/Tazobactam 3.375 GM in 0.9 % Sodium Chloride Mini Bag 100 ML IVPB SCH (15:15)
[2022-04-13] MEDS: Levalbuterol Neb 0.63 MG/3 ML IH SCH ×3 (15:37→23:56)
[2022-04-13] MEDS: Acetylcysteine 10% 2 ML INHSOL IH SCH ×3 (15:38→23:56)
[2022-04-13] MEDS: amLODIPine 5 MG TABLET PO SCH (20:12)
[2022-04-13] MEDS: Apixaban 5 MG TABLET PO SCH (20:12)
[2022-04-13] MEDS: Melatonin 3 MG TABLET PO SCH (20:12)
[2022-04-14 01:40] LABS: Basophils % 0.3 %; Eosinophils # 0.2 K/mcL (0.0-0.6); Eosinophils % 1.6 %; Hematocrit 42.5 % (35.3-44.9); Hemoglobin 13.5 g/dL (11.5-15.4); Immature Granulocytes % 0.4 % (0-4); Lymphocytes # 0.8 K/mcL (0.6-4.6); Lymphocytes % 7.9 %; Mean Corpuscular HGB Conc 31.8 g/dL (31.6-35.5); Mean Corpuscular Hemoglobin 32.3 pg (28.0-33.3); Mean Corpuscular Volume 101.7 fL (83.0-100.0); Mean Platelet Volume 9.9 fL (9.4-12.4); Monocytes # 0.8 K/mcL (0.0-1.3); Monocytes % 8.5 %; Neutrophils # 7.9 K/mcL (1.6-8.9); Platelet Count 156 K/mcL (140-400); Red Blood Count 4.18 M/mcL (3.82-4.97); Red Cell Distribution Width 13.3 % (11.5-14.5); Segmented Neutrophils % 81.3 %; White Blood Count 9.7 K/mcL (4.3-11.1)
[2022-04-14] MEDS: Piperacillin/Tazobactam 3.375 GM in 0.9 % Sodium Chloride Mini Bag 100 ML IVPB SCH ×3 (02:02→15:24)
[2022-04-14] MEDS: *HR* OxyCODONE/APAP 10/325 TABLET PO PRN ×4 (02:02→18:02)
[2022-04-14 02:06] LABS: BUN/Creatinine Ratio 31 (6-26); Blood Urea Nitrogen 15 mg/dL (8-23); Carbon Dioxide 33 mEq/L (23-29); Chloride 94 mEq/L (98-107); Glucose 178 mg/dL (70-105); Osmolality,Calculated 281 (280-300); Sodium 133 mEq/L (136-145); eGFR For African Americans > 60 (> 60); eGFR For Non-African Americans > 60 (> 60)
[2022-04-14] MEDS: Levalbuterol Neb 0.63 MG/3 ML IH SCH ×6 (04:09→23:12)
[2022-04-14] MEDS: Acetylcysteine 10% 2 ML INHSOL IH SCH ×6 (04:09→23:12)
[2022-04-14] MEDS: amLODIPine 5 MG TABLET PO SCH ×2 (07:52→20:31)
[2022-04-14] MEDS: Apixaban 5 MG TABLET PO SCH (07:52)
[2022-04-14] MEDS: Carisoprodol 350 MG TABLET PO SCH ×3 (07:53→20:32)
[2022-04-14] MEDS: Gabapentin 300 MG CAPSULE PO SCH ×3 (07:53→20:32)
[2022-04-14] MEDS: Furosemide 20 MG TABLET PO SCH (09:55)
[2022-04-14] MEDS: Melatonin 3 MG TABLET PO SCH (20:32)
[2022-04-15] MEDS: Piperacillin/Tazobactam 3.375 GM in 0.9 % Sodium Chloride Mini Bag 100 ML IVPB SCH ×3 (00:10→15:08)
[2022-04-15] MEDS: *HR* OxyCODONE/APAP 10/325 TABLET PO PRN ×3 (03:15→15:18)
[2022-04-15] MEDS: *HR* Metoprolol 5 MG/5 ML VIAL IVP PRN ×2 (03:23→05:23)
[2022-04-15] MEDS: Levalbuterol Neb 0.63 MG/3 ML IH SCH ×6 (03:43→23:46)
[2022-04-15] MEDS: Acetylcysteine 10% 2 ML INHSOL IH SCH ×6 (03:43→23:46)
[2022-04-15] MEDS ORDERED: DilTIAZem 50 MG/50 ML IV.SOLN IVC SCH (06:30)
[2022-04-15 07:36] LABS: BUN/Creatinine Ratio 33 (6-26); Blood Urea Nitrogen 14 mg/dL (8-23); Calcium 9.4 mg/dL (8.6-10.3); Carbon Dioxide 39 mEq/L (23-29); Chloride 92 mEq/L (98-107); Glucose 213 mg/dL (70-105); Magnesium 1.9 mg/dL (1.6-2.6); Osmolality,Calculated 285 (280-300); Potassium 3.9 mEq/L (3.5-5.1); Sodium 134 mEq/L (136-145); eGFR For African Americans > 60 (> 60); eGFR For Non-African Americans > 60 (> 60)
[2022-04-15] MEDS: Gabapentin 300 MG CAPSULE PO SCH ×3 (08:31→21:05)
[2022-04-15] MEDS: Furosemide 20 MG TABLET PO SCH (08:31)
[2022-04-15] MEDS: Carisoprodol 350 MG TABLET PO SCH ×3 (08:32→21:05)
[2022-04-15 13:26] LABS: ABG Base Excess 12 mEq/L (-2 to 3); ABG HCO3 40 mEq/L (21-27); ABG Oxygen Saturation 94 % (95-98); ABG PCO2 65 mmHg (35-45); ABG PO2 76 mmHg (85-104); ABG TCO2 42 mEq/L (20-26)
[2022-04-15] MEDS: Melatonin 3 MG TABLET PO SCH (21:05)
[2022-04-16] MEDS: Piperacillin/Tazobactam 3.375 GM in 0.9 % Sodium Chloride Mini Bag 100 ML IVPB SCH ×3 (00:19→15:00)
[2022-04-16] MEDS: Acetylcysteine 10% 2 ML INHSOL IH SCH ×4 (04:11→17:00)
[2022-04-16] MEDS: Levalbuterol Neb 0.63 MG/3 ML IH SCH ×5 (04:11→21:30)
[2022-04-16] MEDS: *HR* OxyCODONE/APAP 10/325 TABLET PO PRN ×4 (04:45→20:57)
[2022-04-16 05:32] LABS: Basophils % 0.2 %; Eosinophils # 0.2 K/mcL (0.0-0.6); Eosinophils % 1.3 %; Hematocrit 41.1 % (35.3-44.9); Hemoglobin 13.2 g/dL (11.5-15.4); Immature Granulocytes % 0.6 % (0-4); Lymphocytes # 0.5 K/mcL (0.6-4.6); Lymphocytes % 3.8 %; Mean Corpuscular HGB Conc 32.1 g/dL (31.6-35.5); Mean Corpuscular Hemoglobin 32.3 pg (28.0-33.3); Mean Corpuscular Volume 100.5 fL (83.0-100.0); Mean Platelet Volume 9.9 fL (9.4-12.4); Monocytes % 7.2 %; Neutrophils # 11.5 K/mcL (1.6-8.9); Platelet Count 198 K/mcL (140-400); Red Blood Count 4.09 M/mcL (3.82-4.97); Red Cell Distribution Width 13.3 % (11.5-14.5); Segmented Neutrophils % 86.9 %; White Blood Count 13.2 K/mcL (4.3-11.1)
[2022-04-16 05:51] LABS: BUN/Creatinine Ratio 38 (6-26); Blood Urea Nitrogen 16 mg/dL (8-23); Calcium 9.3 mg/dL (8.6-10.3); Carbon Dioxide 38 mEq/L (23-29); Chloride 91 mEq/L (98-107); Glucose 169 mg/dL (70-105); Osmolality,Calculated 287 (280-300); Potassium 3.9 mEq/L (3.5-5.1); Sodium 136 mEq/L (136-145); eGFR For African Americans > 60 (> 60); eGFR For Non-African Americans > 60 (> 60)
[2022-04-16] MEDS ORDERED: D5% in Water 1,000 ML IVC PRN (08:32)
[2022-04-16] MEDS ORDERED: Dextrose Gel 15 GM/37.5 ML TUBE PO PRN ×2 (08:32)
[2022-04-16] MEDS ORDERED: *HR* Dextrose 50 % in Water (Syg) 50 ML SYRINGE IVP PRN (08:32)
[2022-04-16] MEDS: Gabapentin 300 MG CAPSULE PO SCH ×3 (08:57→20:57)
[2022-04-16] MEDS: Furosemide 20 MG TABLET PO SCH (08:58)
[2022-04-16] MEDS: Carisoprodol 350 MG TABLET PO SCH ×3 (08:58→20:57)
[2022-04-16] MEDS: Insulin LISPRO 300 UNITS/3 ML VIAL SUBQ SCH ×3 (09:29→19:28)
[2022-04-16] MEDS: *HR* Metoprolol 5 MG/5 ML VIAL IVP PRN ×3 (12:30→14:45)
[2022-04-16] MEDS: DilTIAZem CD (24hr) 120 MG CAP.ER.24H PO SCH (14:51)
[2022-04-16] MEDS: Ipratropium Neb 0.5 MG NEBULIZER IH SCH ×2 (17:00→21:30)
[2022-04-16] MEDS: Morphine Sulfate Oral CONC 10 MG/0.5 ML ORAL.SYG SL PRN (17:17)
[2022-04-16] MEDS: Melatonin 3 MG TABLET PO SCH (20:57)
[2022-04-16] MEDS ORDERED: Insulin LISPRO 300 UNITS/3 ML VIAL SUBQ SCH (21:00)
[2022-04-16] MEDS: Budesonide Neb 0.5 MG/2 ML IH SCH (21:30)
[2022-04-17] MEDS: Piperacillin/Tazobactam 3.375 GM in 0.9 % Sodium Chloride Mini Bag 100 ML IVPB SCH ×3 (01:16→16:40)
[2022-04-17] MEDS: Morphine Sulfate Oral CONC 10 MG/0.5 ML ORAL.SYG SL PRN ×2 (01:17→15:38)
[2022-04-17 03:16] LABS: Basophils % 0.3 %; Eosinophils # 0.2 K/mcL (0.0-0.6); Eosinophils % 1.3 %; Hematocrit 42.1 % (35.3-44.9); Hemoglobin 13.4 g/dL (11.5-15.4); Immature Granulocytes % 0.8 % (0-4); Lymphocytes # 0.6 K/mcL (0.6-4.6); Lymphocytes % 4.6 %; Mean Corpuscular HGB Conc 31.8 g/dL (31.6-35.5); Mean Corpuscular Hemoglobin 32.2 pg (28.0-33.3); Mean Corpuscular Volume 101.2 fL (83.0-100.0); Mean Platelet Volume 9.8 fL (9.4-12.4); Monocytes # 1.1 K/mcL (0.0-1.3); Monocytes % 8.4 %; Neutrophils # 10.8 K/mcL (1.6-8.9); Platelet Count 220 K/mcL (140-400); Red Blood Count 4.16 M/mcL (3.82-4.97); Red Cell Distribution Width 13.4 % (11.5-14.5); Segmented Neutrophils % 84.6 %; White Blood Count 12.8 K/mcL (4.3-11.1)
[2022-04-17 03:33] LABS: BUN/Creatinine Ratio 34 (6-26); Blood Urea Nitrogen 17 mg/dL (8-23); Calcium 9.4 mg/dL (8.6-10.3); Carbon Dioxide 36 mEq/L (23-29); Chloride 89 mEq/L (98-107); Glucose 145 mg/dL (70-105); Magnesium 2.4 mg/dL (1.6-2.6); Osmolality,Calculated 284 (280-300); Potassium 3.9 mEq/L (3.5-5.1); Sodium 135 mEq/L (136-145); eGFR For African Americans > 60 (> 60); eGFR For Non-African Americans > 60 (> 60)
[2022-04-17] MEDS ORDERED: *HR* LORazepam 2 MG/ML VIAL IVP ONE (04:36)
[2022-04-17] MEDS: *HR* OxyCODONE/APAP 10/325 TABLET PO PRN ×2 (05:15→11:38)
[2022-04-17] MEDS: Levalbuterol Neb 0.63 MG/3 ML IH SCH ×2 (07:10→16:01)
[2022-04-17] MEDS: Budesonide Neb 0.5 MG/2 ML IH SCH (07:10)
[2022-04-17] MEDS: Ipratropium Neb 0.5 MG NEBULIZER IH SCH ×2 (07:10→16:01)
[2022-04-17] MEDS: DilTIAZem CD (24hr) 120 MG CAP.ER.24H PO SCH (08:13)
[2022-04-17] MEDS: Gabapentin 300 MG CAPSULE PO SCH ×2 (08:13→15:38)
[2022-04-17] MEDS: Insulin LISPRO 300 UNITS/3 ML VIAL SUBQ SCH ×3 (08:14→16:45)
[2022-04-17] MEDS ORDERED: levoFLOXacin 750 MG TABLET PO SCH (09:00)
[2022-04-17] MEDS: Furosemide 20 MG TABLET PO SCH (11:30)
[2022-04-17] MEDS: Carisoprodol 350 MG TABLET PO SCH ×2 (12:25→15:38)
[2022-04-17] MEDS ORDERED: Acetylcysteine 10% 2 ML INHSOL IH SCH (15:00)
[2022-04-17 16:36] VITALS: BP 93/65; PULSE 109; TEMP 97.1; O2SAT 94
== END 2022-04-17 17:37 | disposition hospice, home (50) | DRG 826 ==
LOC: EMEROOARM 11:35 → 3NENU 11:35 → SUATTDRO 18:14 → 2NNU 04-10 17:48 → 2ANU 04-17 02:01
PROVIDERS: ADMIT Internal Medicine; ATTEND Pharmacist